=== PATIENT | female | born 2000 | race Caucasian/White ===

== ENCOUNTER 2019-10-08 22:10 | Emergency (ER) | payer MEDICAID, SELFPAY ==
[2019-10-08 22:13] VITALS: BP 159/90; PULSE 91; RESP 16; TEMP 36.4; O2SAT 100
--- NOTE | 2019-10-08 22:17 | ED_ITS ---
HPI - General Adult General Chief complaint: Urogenital-Female Stated complaint: STD Check Time Seen by Provider: 10/08/19 22:15 History of Present Illness HPI narrative: She is concerned because she was told that her x-boyfriend has herpes. She has not had sexual intercourse with in him in 3 months. She denies any symptoms. No discharge, sores, bleeding, pain. Review of Systems Review of Systems: All systems reviewed & are unremarkable except as noted in HPI and below Constitutional: Constitutional: Denies chills and Denies fever(s) Respiratory: Respiratory: Denies chest congestion and Denies cough Gastrointestinal: Gastrointestinal: Denies abdominal pain, Denies diarrhea, Denies nausea and Denies vomiting Genitourinary: Genitourinary: Denies abnormal vaginal bleeding, Denies dysuria, Denies pelvic pain and Denies vaginal discharge Exam Const: General: healthy appearing, no acute distress and alert Nutritional Appearance: obese Orientation/consciousness: patient oriented x3 HENMT: Head: normal to inspection Resp: Effort & Inspection: normal respiratory effort : Other: defered Skin: General skin exam: normal color Neuro: General: patient oriented x3 and moves all extremities Speech: normal speech Extrem: General: normal to inspection Course Vital Signs Vital signs: Vital Signs Temperature 36.4 C 10/08/19 22:13 Pulse Rate 91 10/08/19 22:13 Respiratory Rate 16 10/08/19 22:13 Blood Pressure 159/90 H 10/08/19 22:13 Pulse Oximetry 100 10/08/19 22:13 Temperature 36.4 C 10/08/19 22:13 Pulse Rate 91 10/08/19 22:13 Respiratory Rate 16 10/08/19 22:13 Blood Pressure 159/90 H 10/08/19 22:13 Pulse Oximetry 100 10/08/19 22:13 Medical Decision Making Vital Signs Vital Signs: Vital Signs Temperature 36.4 C 10/08/19 22:13 Pulse Rate 91 10/08/19 22:13 Respiratory Rate 16 10/08/19 22:13 Blood Pressure 159/90 H 10/08/19 22:13 Pulse Oximetry 100 10/08/19 22:13 Temperature 36.4 C 10/08/19 22:13 Pulse Rate 91 10/08/19 22:13 Respiratory Rate 16 10/08/19 22:13 Blood Pressure 159/90 H 10/08/19 22:13 Pulse Oximetry 100 10/08/19 22:13 Discharge Plan Discharge Clinical Impression: Possible exposure to STD Patient Disposition: Home, Self-Care Condition: Stable Instructions: Sexually Transmitted Diseases (ED) Follow-up/Referrals: Barney Moser MD [Physician] - PHYSICIAN,[employer]OCHL[employer]IC [employer]PERVISOR [Non-Staff] -
[2019-10-08 23:06] VITALS: BP 122/80; PULSE 80; RESP 20; TEMP 36.7; O2SAT 99
== END 2019-10-08 23:12 | disposition home or self-care (01) ==
LOC: ANHED 22:31
PROVIDERS: Emergency Provider Emergency Medicine
DX: Z20.2 Contact with and (suspected) exposure to infections with a predominantly sexual mode of transmission (principal)
CPT/HCPCS: 36415; 86695; 86696; 99283